=== PATIENT | male | born 1940 | race Caucasian/White ===

== ENCOUNTER 2021-06-12 15:50 | Inpatient (IN) | payer OTHER ==
[~2021-06-12] VITALS: Ht 177.8 cm; Wt 136.1 kg
--- NOTE | 2021-06-12 15:50 | NUR ---
CHRISTA COLLIER ALS AND PLACED IN BED 1.
[2021-06-12 15:59] VITALS: BP 118/51
[2021-06-12] MEDS ORDERED: cefTRIAXone 1,000 MG in DEXT 5% MINI-BAG PLUS 50 ML IV ONE (16:15)
--- NOTE | 2021-06-12 16:20 | NUR ---
80/M biba from home with c/o weakness. Per EMS patient was feeling weak at home stating "he felt his knees were going to give out," EMS states this is the third 911 call today for the same reason. Patient states he helped himself to the ground when he felt weak, denies LOC, c/o 3/10 pain to left knee and foot from previous fall today. Abrasion noted to left knee, no redness or swelling noted to left foot. Patient states he is able to ambulate with assistance for short distances at home. Patient placed in gown on bedside boiler riveter.
[2021-06-12] MEDS ORDERED: cefTRIAXone 1,000 MG VIAL ONE (16:37)
[2021-06-12 16:44] LABS: BASOPHILS # (AUTO) 0.2 K/uL (0.00-0.22); BASOPHILS % (AUTO) 1.7 % (0.0-2.0); EOSINOPHILS % (AUTO) 0.2 % (0.0-4.0); HEMATOCRIT 46.3 % (36-52); HEMOGLOBIN 15.5 g/dL (12.0-18.0); LYMPHOCYTES # (AUTO) 0.6 K/uL (2.0-11.5); LYMPHOCYTES % (AUTO) 4.2 % (20.5-51.1); MEAN CORPUSCULAR HEMOGLOBIN 28 pg (27-31); MEAN CORPUSCULAR HGB CONC 34 g/dL (33-37); MEAN CORPUSCULAR VOLUME 81.9 fL (80-94); MONOCYTES % (AUTO) 7.5 % (1.7-9.3); NEUTROPHILS # (AUTO) 11.7 K/uL (1.8-7.7); NEUTROPHILS % (AUTO) 86.4 % (42.2-75.2); PLATELET COUNT (AUTO) 132 K/uL (140-450); RED BLOOD CELL COUNT(AUTO) 5.65 MIL/uL (4.20-6.10); RED CELL DISTRIBUTION WIDTH 18.6 % (11.6-13.7); WHITE BLOOD COUNT (AUTO) 13.5 K/uL (4.8-10.8)
[2021-06-12] MEDS ORDERED: NACL 0.9% 1,000 ML IV ONE ×2 (17:10→17:30)
--- NOTE | 2021-06-12 18:00 | NUR ---
Patient resting in bed, provided water, on bedside call manager. All needs met at this time.
[2021-06-12 18:32] LABS: APPEARANCE,URINE CLEAR (CLEAR); BILIRUBIN,URINE NEGATIVE (NEGATIVE); BLOOD, URINE NEGATIVE (NEGATIVE); COLOR,URINE YELLOW (YELLOW); LEUKOCYTE ESTERASE ,URINE NEGATIVE (NEGATIVE); NITRITE, URINE NEGATIVE (NEGATIVE); UGLUCOSE NEGATIVE (NEGATIVE)
[2021-06-12] MEDS ORDERED: ACETAMINOPHEN 325 MG TAB PO PRN (18:45)
[2021-06-12] MEDS ORDERED: MORPHINE SULFATE 2 MG/ML SYR IVP PRN (18:45)
[2021-06-12] MEDS ORDERED: ZOLPIDEM 5 MG TAB PO PRN (18:45)
[2021-06-12] MEDS ORDERED: ONDANSETRON 4 MG/2 ML VIAL IVP PRN (18:45)
[2021-06-12] MEDS ORDERED: LORazepam 2 MG/ML VIAL IM/IVP PRN (18:45)
[2021-06-12] MEDS ORDERED: DOCUSATE SODIUM 100 MG GELCAP PO PRN (18:45)
[2021-06-12] MEDS: NACL 0.9% 1,000 ML IV SCH (18:58)
[2021-06-12] MEDS ORDERED: LOVENOX 1MG/KG Q12H SUBQ SCH (19:00)
--- NOTE | 2021-06-12 19:18 | NUR ---
Pt report given to Cecilia. Transfer of care at this time.
--- NOTE | 2021-06-12 19:40 | NUR ---
AWAKE AND ALERT WITH HOB ELEVATED. C/O DISCOMFORT FROM LAYING ON GURNEY, ASSISTED WITH REPOSITIONING. CM = ST WITH OCCASIONAL PVC. SKIN IS WARM AND DRY
[2021-06-12 19:43] LABS: MAGNESIUM 2.5 mg/dL (1.8-2.4); PHOSPHORUS 3.4 mg/dL (2.5-4.9)
--- NOTE | 2021-06-12 19:50 | NUR ---
REPORT CALLED TO CODY SANCHEZ
--- NOTE | 2021-06-12 19:53 | NUR ---
RECEIVED PHONE REPORT FROM ER NURSE FOR CONTINUITY OF CARE. WAITING PATIENT TO TRANSFER TO UNIT.
[2021-06-12 20:14] LABS: CHOL/HDL RATIO 3.5 (1-4.5); FREE T4 (FREE THYROXINE) 1.1 ng/dL (0.76-1.46); THYROID STIMULATING HORMONE 2.03 uIU/mL (0.34-3.74)
--- NOTE | 2021-06-12 20:20 | NUR ---
ADMITTED, TRANSFERED TO 107B VIA GURNEY ATTACHED TO ACCOMPANIED BY 2 RN'S
[2021-06-12 20:30] LABS: POTASSIUM 3.2 mmol/L (3.5-5.1); SODIUM SERUM 138 mmol/L (136-145)
[2021-06-12 20:31] LABS: ASPARTATE AMINOTRANSFERASE 53 U/L (15-37); CARBON DIOXIDE 33.2 mmol/L (21-32); CHLORIDE 94 mmol/L (98-107); CREATININE 1.2 mg/dL (0.6-1.3); GLUCOSE 167 mg/dL (74-106); TOTAL BILIRUBIN 0.6 mg/dL (0.0-1.0); UREA NITROGEN, BLOOD 59 mg/dL (7-18)
[2021-06-12 20:32] LABS: ALBUMIN 3.5 g/dL (3.4-5.0)
[2021-06-12 20:34] LABS: PROTHROMBIN TIME 11.7 secs (10.8-13.4)
--- NOTE | 2021-06-12 20:55 | NUR ---
RECEIVED CALL FROM LAB TO REPORT CRITICAL LAB VALUES LACTIC ACID 4.2, NOTIFIED DR PIPER, NO NEW ORDER, DR SERRANO.
[2021-06-12 21:30] VITALS: BP 138/55
--- NOTE | 2021-06-12 21:30 | NUR ---
RECEIVED PATIENT TRANSFER FROM ER BY MARSHA. CC FELL X3 AT HOME, GEN WEAKNESS. DX DEHYDRATION, ELEVATED TROP. PATIENT IS A/A/O X4. ON TELE MONITOR. RESPIRATORY EVEN AND UNLABORED, ON 2L OXYGEN VIA NC, O2 SAT 99%. NO SIGN OF DISTRESS NOTED. LUNG SOUND CLEAR TO AUSCULTATE. SKIN WARM, DRY, NON DIAPHORETIC. IV ON LEFT HAND 20G, INTACT AND PATENT. ABRASION NOTED ON LEFT KNEE, NO ACTIVE BLEEDING OR SIGN OF INFECTION. ABDOMEN ROUND, NON TENDER, BOWEL SOUND ACTIVE TO 4 QUADRANTS. PATIENT DENIES ANY PAIN OR DISCOMFORT. ABLE TO MAKE NEED KNOWN. PLAN OF CARE DISCUSSED, PATIENT VERBALIZED UNDERSTANDING. PRECAUTION IN PLACE. CALL LIGHT WITHIN REACH. WILL CONTINUE TO MONITOR.
[2021-06-12] MEDS: METOPROLOL 50 MG TAB PO SCH ×2 (22:38→22:43)
--- NOTE | 2021-06-12 22:45 | NUR ---
PATIENT COMPLAINS OF URGE TO URINATE BUT UNABLE, BLADDER SCAN SHOWED AROUND 500ML. TEXT DR PIPER, INSERT SNOW CATH, ULTRASOUND RENAL AND BLADDER, K DUR 40 MEQ PO X ONCE FOR POTASSIUM 3.2. WILL FOLLOW ORDER.
--- NOTE | 2021-06-12 23:00 | NUR ---
INSERT SNOW CATHETER, 1000ML URINE OUTPUT, CLEAR YELLOW. PATIENT TOLERATED WELL. NO SIGN OF DISTRESS NOTED. PRECAUTION IN PLACE. CALL LIGHT WITHIN REACH. WILL CONTINUE TO MONITOR.
[2021-06-12] MEDS ORDERED: POTASSIUM CHLORIDE 10 MEQ TABER PO SCH (23:05)
[2021-06-12] MEDS ORDERED: PIPERACILLIN/TAZOBACTAM 3.375 GM VIAL IV ONE (23:36)
[2021-06-12] MEDS: PIPERACILLIN/TAZOBACTAM 3.375 GM in DEXTROSE 5% 50 ML IV SCH (23:44)
--- NOTE | 2021-06-12 23:44 | NUR ---
SCHEDULE MEDICATIONS GIVEN WITH EDUCATION. PATIENT VERBALIZED UNDERSTANDING. PATIENT TOLERATED WELL. PRECAUTION IN PLACE. CALL LIGHT WITHIN REACH. WILL CONTINUE TO MONITOR.
[2021-06-13] VITALS: BP 118/51
--- NOTE | 2021-06-13 02:00 | NUR ---
PATIENT IS AWAKE, RESTING IN BED, NO SIGN OF RESPIRATORY DISTRESS NOTED. PRECAUTION IN PLACE. CALL LIGHT WITHIN REACH. WILL CONTINUE TO MONITOR.
[2021-06-13 04:00] VITALS: BP 114/50
--- NOTE | 2021-06-13 04:00 | NUR ---
PATIENT IS AWAKE, RESTING IN BED, NO SIGN OF DISTRESS NOTED. PRECAUTION IN PLACE. CALL LIGHT WITHIN REACH. WILL CONTINUE TO MONITOR.
[2021-06-13] MEDS ORDERED: PIPERACILLIN/TAZOBACTAM 3.375 GM VIAL IV ONE (04:23)
[2021-06-13] MEDS: PIPERACILLIN/TAZOBACTAM 3.375 GM in DEXTROSE 5% 50 ML IV SCH ×2 (04:33→13:00)
--- NOTE | 2021-06-13 04:33 | NUR ---
SCHEDULE MEDICATION GIVEN WITH EDUCATION. PATIENT VERBALIZED UNDERSTANDING. NO SIGN OF DISTRESS NOTED. PRECAUTION IN PLACE. CALL LIGHT WITHIN REACH. WILL CONTINUE TO MONITOR.
--- NOTE | 2021-06-13 04:40 | NUR ---
ASSESSMENT COMPLETED AND PT ASKED TO ME COME BACK AT A LATER TIME FOR EKG Addendum: 06/13/21 at 0442 by Coleman Noland Jr RT ASSESSMENT COMPLETED AND PT ASKED ME TO COME BACK AT A LATER TIME FOR EKG
[2021-06-13] MEDS: NACL 0.9% 1,000 ML IV SCH ×2 (06:30→15:18)
--- NOTE | 2021-06-13 06:59 | NUR ---
PATIENT HAS BEEN SCREENED AND CATEGORIZED MODERATE NUTRITION RISK. PATIENT WILL BE SEEN WITHIN 3-5 DAYS OF ADMISSION. 06/15/21 06/17/[address]
[2021-06-13 07:07] LABS: BASOPHILS % (AUTO) 0.2 % (0.0-2.0); EOSINOPHILS % (AUTO) 0.1 % (0.0-4.0); HEMATOCRIT 34.3 % (36-52); HEMOGLOBIN 11.6 g/dL (12.0-18.0); LYMPHOCYTES # (AUTO) 0.9 K/uL (2.0-11.5); LYMPHOCYTES % (AUTO) 8.5 % (20.5-51.1); MEAN CORPUSCULAR HEMOGLOBIN 28 pg (27-31); MEAN CORPUSCULAR HGB CONC 34 g/dL (33-37); MEAN CORPUSCULAR VOLUME 83.3 fL (80-94); MONOCYTES # (AUTO) 1.1 K/uL (0.8-1.0); MONOCYTES % (AUTO) 9.7 % (1.7-9.3); NEUTROPHILS # (AUTO) 9.1 K/uL (1.8-7.7); NEUTROPHILS % (AUTO) 81.5 % (42.2-75.2); PLATELET COUNT (AUTO) 118 K/uL (140-450); RED BLOOD CELL COUNT(AUTO) 4.11 MIL/uL (4.20-6.10); RED CELL DISTRIBUTION WIDTH 18.7 % (11.6-13.7); WHITE BLOOD COUNT (AUTO) 11.2 K/uL (4.8-10.8)
[2021-06-13 07:15] LABS: ANION GAP 10.5 (8-16); CARBON DIOXIDE 32.5 mmol/L (21-32); CHLORIDE 97 mmol/L (98-107); CREATININE 0.9 mg/dL (0.6-1.3); GLUCOSE 147 mg/dL (74-106); SODIUM SERUM 137 mmol/L (136-145); UREA NITROGEN, BLOOD 57 mg/dL (7-18)
[2021-06-13 07:21] LABS: MAGNESIUM 2.1 mg/dL (1.8-2.4); PHOSPHORUS 2.7 mg/dL (2.5-4.9)
--- NOTE | 2021-06-13 07:25 | NUR ---
ENDORSED PATIENT TO AM NURSE FOR CONTINUITY OF CARE. PATIENT IS STABLE.
--- NOTE | 2021-06-13 07:26 | NUR ---
RECEIVED REPORT FROM SAMMYING MACHINE OPERATOR NURSE. PATIENT LYING DOWN IN BED SLEEPING, AROUSABLE BY VOICE. NO DISTRESS NOTED. ON O2 2L/MIN VIA NC. IV SITE INTACT, PATENT, AND INFUSING IVF PER MD ORDERS. SKIN INTACT. PATIENT HAS GENERALIZED WEAKNESS. REVIEWED PLAN OF CARE WITH PATIENT. PATIENT VERBALIZED UNDERSTANDING. SAFETY MEASURES IN PLACE, CALL LIGHT WITHIN REACH. WILL CONTINUE TO MONITOR.
[2021-06-13 08:00] VITALS: BP 108/43
[2021-06-13] MEDS ORDERED: FERROUS SULFATE 325 MG TABEC PO SCH (08:00)
[2021-06-13] MEDS ORDERED: POTASSIUM CHLORIDE 10 MEQ TABER PO SCH ×2 (08:30→09:00)
[2021-06-13] MEDS: FINASTERIDE 5 MG TAB PO SCH (08:52)
[2021-06-13] MEDS: TAMSULOSIN 0.4 MG CAP PO SCH (08:52)
[2021-06-13] MEDS: METOPROLOL 50 MG TAB PO SCH (08:53)
--- NOTE | 2021-06-13 08:53 | NUR ---
SCHEDULED MEDICATIONS DUE GIVEN. WILL CONTINUE TO MONITOR.
[2021-06-13] MEDS ORDERED: LORATADINE 10 MG TAB PO SCH (09:00)
[2021-06-13] MEDS ORDERED: FUROSEMIDE 40 MG TAB PO SCH (09:00)
[2021-06-13] MEDS ORDERED: SPIRONOLACTONE 25 MG TAB PO SCH (09:00)
[2021-06-13 12:00] VITALS: BP 114/51
--- NOTE | 2021-06-13 15:36 | NUR ---
REVIEWED PMHX AND PULMONARY STATUS WITH DR. MANDIE GAY: HHN Q4PRN SOB/WHEEZE WITH HARRY; SUREKHA FOR MEMBER SERVICES REPRESENTATIVE TO ORDER
[2021-06-13] MEDS ORDERED: ALBUTEROL SULFATE/IPRATROPIU 3 ML SOL IH PRN (15:50)
[2021-06-13 16:00] VITALS: BP 101/51
[2021-06-13] MEDS: POTASSIUM CHL 40 MEQ/ D5-1/2NS 1,000 ML IV SCH (16:40)
[2021-06-13] MEDS ORDERED: OCTREOTIDE ACETATE 1.25 MG in NACL 0.9% 250 ML IV SCH (17:10)
[2021-06-13 17:43] LABS: BASOPHILS # (AUTO) 0.1 K/uL (0.00-0.22); BASOPHILS % (AUTO) 0.4 % (0.0-2.0); EOSINOPHILS # (AUTO) 0.1 K/uL (0-0.4); EOSINOPHILS % (AUTO) 0.9 % (0.0-4.0); HEMATOCRIT 29.8 % (36-52); LYMPHOCYTES # (AUTO) 1.3 K/uL (2.0-11.5); LYMPHOCYTES % (AUTO) 9.6 % (20.5-51.1); MEAN CORPUSCULAR HEMOGLOBIN 28 pg (27-31); MEAN CORPUSCULAR HGB CONC 34 g/dL (33-37); MEAN CORPUSCULAR VOLUME 83.8 fL (80-94); MONOCYTES # (AUTO) 1.4 K/uL (0.8-1.0); NEUTROPHILS # (AUTO) 10.9 K/uL (1.8-7.7); NEUTROPHILS % (AUTO) 79.1 % (42.2-75.2); PLATELET COUNT (AUTO) 144 K/uL (140-450); RED BLOOD CELL COUNT(AUTO) 3.55 MIL/uL (4.20-6.10); WHITE BLOOD COUNT (AUTO) 13.8 K/uL (4.8-10.8)
[2021-06-13] MEDS: LACTULOSE 20 GM/30 ML UDC PO SCH ×2 (17:53→21:20)
--- NOTE | 2021-06-13 17:59 | NUR ---
SCHEDULED MEDICATIONS DUE GIVEN. WILL CONTINUE TO MONITOR.
[2021-06-13] MEDS: OCTREOTIDE ACETATE 1.25 MG in NACL 0.9% 250 ML IV SCH (18:36)
--- NOTE | 2021-06-13 18:47 | NUR ---
SCHEDULED MEDICATIONS DUE GIVEN. WILL CONTINUE TO MONITOR.
[2021-06-13] MEDS: SENNA 8.6 MG TAB PO SCH (18:50)
--- NOTE | 2021-06-13 19:27 | NUR ---
GAVE REPORT TO POLYMER CHEMIST NURSE FOR CONTINUITY OF CARE. PATIENT IN STABLE CONDITION.
--- NOTE | 2021-06-13 19:30 | NUR ---
RECEIVED REPORT FROM RN DAYSHIFT NURSE AT BEDSIDE FOR CONTINUITY OF CARE, PT IN STABLE CONDITION. HE IS LYING IN BED HOB UP 45% HE IS ON 2 LITERS O2 VIA N/C. HE HAS 2 IV SITES LEFT HAND 20GUAGE RUNNING D5 1/2 NS WITH 40KCL AT 80MLS/HR AND A LEFT F/A 22G RUNNING SANDOSTATIN AT 10MLS/HR. HE IS RESTING WITH EYES CLOSED BUT AROUSABLE TO NAME AND LIGHT SHAKING. ALL FALLS PRECAUTIONS PROTOCOL IN PLACE.
[2021-06-13 20:00] VITALS: BP 107/51
--- NOTE | 2021-06-13 20:15 | NUR ---
PT LYING IN BED AOX4 AROUSABLE TO NAME AND LIGHT TOUCH. V/S FOLLOWS: T 97.4 P 90 R 18 B/P 107/51 02 97% WITH 2 LITERS VIA N/C. NO C/O VOICED AT THIS TIME. ALL FALLS PRECAUTIONS IN PLACE.
[2021-06-13] MEDS ORDERED: SUPREP BOWEL PREP KIT 354 ML SOLN.RECON PO ONE (21:00)
[2021-06-13] MEDS: METOPROLOL 25 MG TAB PO SCH (21:00)
[2021-06-13] MEDS ORDERED: CRUSHER, PILL MC ONE (21:03)
--- NOTE | 2021-06-13 21:30 | NUR ---
PT IN BED RESTING BUT AWOKEN TO NAME. PT MADE AWARE OF ORDERED AND SCHEDULED MEDS. LOPRESSOR HELD DUE TO DECREASED B/P (107/51). PT GIVEN ORDERED LACTULOSE AND SUPER BOWEL PREP DRINK. EDUCATION REGARDING SCHEDULED MEDS PROVIDED AT BEDSIDE, PT VERBALIZED UNDERSTANDING. ALL FALLS PROTOCOL IN PLACE.
--- NOTE | 2021-06-13 22:00 | NUR ---
PT HAD LARGE LOOSE AND DARK BOWEL MOVEMENT. HE WAS TURNED, CHANGED AND REPOSITIONED IN BED. HE CONTINUES ON D5 1/2 NS WITH KCL 40MEQ AT 80MLS WELL SANDOSTATIN AT 10MLS HR IV SITES INTACT AND ASYMPTOMATIC. BOWEL PREP DRINK FINISHED ALL FALLS PRECAUTIONS IN PLACE.
--- NOTE | 2021-06-13 23:13 | NUR ---
PT HAD ANOTHER VERY LARGE AND VERY LOOSE DARK BM. HE WAS TURNED, CHANGED AND REPOSITIONED IN BED.
[2021-06-14] VITALS: BP 106/50
--- NOTE | 2021-06-14 00:30 | NUR ---
PT CHANGED AND REPOSITIONED IN BED V/S FOLLOWS: T 97.4 P 90 R 18 B/P 107/51 02 97% ON ROOM AIR. ALL FALLS PRECAUTIONS IN PLACE.
--- NOTE | 2021-06-14 01:30 | NUR ---
PT WAS TURNED, CHANGED AND REPOSITIONED IN BED. HE WAS GIVEN ORDERED SEN[place]OT FOR BOWEL PREP. STOOL IS IS STILL DARK AND VERY LOOSE.
[2021-06-14] MEDS: SENNA 8.6 MG TAB PO SCH ×3 (01:40→12:35)
[2021-06-14 02:00] LABS: HEMATOCRIT 27.3 % (36-52); HEMOGLOBIN 9.2 g/dL (12.0-18.0); MEAN CORPUSCULAR HEMOGLOBIN 28 pg (27-31); MEAN CORPUSCULAR HGB CONC 34 g/dL (33-37); MEAN CORPUSCULAR VOLUME 83.4 fL (80-94); PLATELET COUNT (AUTO) 115 K/uL (140-450); RED BLOOD CELL COUNT(AUTO) 3.28 MIL/uL (4.20-6.10); RED CELL DISTRIBUTION WIDTH 18.5 % (11.6-13.7); WHITE BLOOD COUNT (AUTO) 12.2 K/uL (4.8-10.8)
--- NOTE | 2021-06-14 02:00 | NUR ---
20 GUAGE INFILTRATED. 2 NEW IV 'S PLACED 24G ON LEFT F/A RUNNING SANDOSTATIN AND 18 GUAGE ON RIGHT AC SALINE LOCKED.
--- NOTE | 2021-06-14 02:30 | NUR ---
TYLENOL WAS GIVEN FOR C/O PAIN IN THE ABDOMEN WILL MONITOR FOR EFFECT.
[2021-06-14 04:00] VITALS: BP 132/68
[2021-06-14 04:57] LABS: LYMPHOCYTES % (MANUAL) 7 % (20-46); MONOCYTES % (MANUAL) 2 % (5-12)
[2021-06-14] MEDS: POTASSIUM CHL 40 MEQ/ D5-1/2NS 1,000 ML IV SCH ×2 (06:26→17:40)
[2021-06-14] MEDS: HYDROcodone/APAP 5/325 MG 1 TAB TAB PO PRN ×2 (06:26→16:40)
--- NOTE | 2021-06-14 06:30 | NUR ---
PT WAS TURNED, CHANGED AND REPOSITIONED IN BED. PT STILL HAS A SMALL AMOUNT OF CLEAR LIQUID BLOOD TINGED STOOL. FLUIDS RUNNING ORDERED. AND ALL ORDERED PRECAUTION SIN PLACE.
[2021-06-14 07:03] LABS: BASOPHILS % (AUTO) 0.3 % (0.0-2.0); EOSINOPHILS % (AUTO) 0.3 % (0.0-4.0); HEMATOCRIT 24.8 % (36-52); HEMOGLOBIN 8.4 g/dL (12.0-18.0); LYMPHOCYTES # (AUTO) 1.1 K/uL (2.0-11.5); LYMPHOCYTES % (AUTO) 8.7 % (20.5-51.1); MEAN CORPUSCULAR HEMOGLOBIN 28 pg (27-31); MEAN CORPUSCULAR HGB CONC 34 g/dL (33-37); MEAN CORPUSCULAR VOLUME 81.9 fL (80-94); MONOCYTES # (AUTO) 1.4 K/uL (0.8-1.0); MONOCYTES % (AUTO) 11.5 % (1.7-9.3); NEUTROPHILS # (AUTO) 9.7 K/uL (1.8-7.7); NEUTROPHILS % (AUTO) 79.2 % (42.2-75.2); PLATELET COUNT (AUTO) 114 K/uL (140-450); RED BLOOD CELL COUNT(AUTO) 3.02 MIL/uL (4.20-6.10); RED CELL DISTRIBUTION WIDTH 18.7 % (11.6-13.7); WHITE BLOOD COUNT (AUTO) 12.3 K/uL (4.8-10.8)
[2021-06-14 07:04] LABS: ANION GAP 10.9 (8-16); CARBON DIOXIDE 29.3 mmol/L (21-32); CHLORIDE 98 mmol/L (98-107); CREATININE 0.9 mg/dL (0.6-1.3); GLUCOSE 179 mg/dL (74-106); POTASSIUM 3.2 mmol/L (3.5-5.1); SODIUM SERUM 135 mmol/L (136-145); UREA NITROGEN, BLOOD 36 mg/dL (7-18)
--- NOTE | 2021-06-14 07:10 | NUR ---
RECEIVED REPORT FROM FINANCING ANALYST NURSE AT BEDSIDE FOR CONTINUITY OF CARE, PT IN STABLE CONDITION, AWAKE. HE IS LYING IN BED HOB UP 45%. ON 2 LITERS O2 VIA N/C. HE HAS 2 IV SITES LEFT HAND 20G RUNNING D5 1/2 NS WITH 40KCL AT 80MLS/HR AND A LEFT F/A 22G RUNNING SANDOSTATIN AT 10MLS/HR. HE IS RESTING, NO COMPLAINTS AT THIS TIME. ALL FALLS PRECAUTIONS PROTOCOL IN PLACE. CALL LIGHT WITHIN REACH, WILL CONTINUE TO MONITOR PATIENT.
[2021-06-14 07:12] LABS: MAGNESIUM 2.1 mg/dL (1.8-2.4); PHOSPHORUS 2.4 mg/dL (2.5-4.9)
[2021-06-14 08:00] VITALS: BP 104/55
[2021-06-14] MEDS: METOPROLOL 25 MG TAB PO SCH ×2 (08:56→21:00)
[2021-06-14] MEDS: FINASTERIDE 5 MG TAB PO SCH (09:04)
[2021-06-14] MEDS: TAMSULOSIN 0.4 MG CAP PO SCH (09:04)
[2021-06-14] MEDS: LACTULOSE 20 GM/30 ML UDC PO SCH ×2 (09:04→12:35)
--- NOTE | 2021-06-14 09:08 | NUR ---
ORDERED MEDICATIONS GIVEN. PATIENT TOLERATED THEM. WILL CONTINUE TO MONITOR PATIENT.
--- NOTE | 2021-06-14 10:40 | NUR ---
PT HAD BM, DARK MAROON WITH CLOTS. PATIENT CHANGED, CLEANED. PATIENT TOLERATED IT. WILL CONTINUE TO MONITOR PATIENT.
--- NOTE | 2021-06-14 11:25 | NUR ---
DR PEREIRA CALLED THE FLOOR. UPDATED DR. PEREIRA'S WITH PT'S STATUS, MOST RECENT HGB & HCT, NPO STATUS. NEW ORDERS IN. DR PEREIRA STATED HE WILL CALL RIGGING UP MAN TO GET PATIENT READY FOR PROCEDURE. UPDATED PATIENT WITH THIS INFO, HE VERBALIZED UNDERSTANDING. WILL CONTINUE TO MONITOR PATIENT.
[2021-06-14] MEDS: OCTREOTIDE ACETATE 1.25 MG in NACL 0.9% 250 ML IV SCH ×2 (11:40→17:33)
[2021-06-14 12:00] VITALS: BP 127/50
[2021-06-14 12:10] LABS: BASOPHILS % (AUTO) 0.2 % (0.0-2.0); EOSINOPHILS % (AUTO) 0.4 % (0.0-4.0); HEMATOCRIT 22.9 % (36-52); HEMOGLOBIN 7.6 g/dL (12.0-18.0); LYMPHOCYTES # (AUTO) 0.9 K/uL (2.0-11.5); LYMPHOCYTES % (AUTO) 7.6 % (20.5-51.1); MEAN CORPUSCULAR HEMOGLOBIN 28 pg (27-31); MEAN CORPUSCULAR HGB CONC 33 g/dL (33-37); MEAN CORPUSCULAR VOLUME 83.4 fL (80-94); MONOCYTES # (AUTO) 1.2 K/uL (0.8-1.0); MONOCYTES % (AUTO) 10.8 % (1.7-9.3); NEUTROPHILS # (AUTO) 9.1 K/uL (1.8-7.7); PLATELET COUNT (AUTO) 109 K/uL (140-450); RED BLOOD CELL COUNT(AUTO) 2.74 MIL/uL (4.20-6.10); WHITE BLOOD COUNT (AUTO) 11.2 K/uL (4.8-10.8)
--- NOTE | 2021-06-14 12:41 | NUR ---
Ordered medications given. Patient tolerated them. All needs met at this time. Call light within reach, will continue to monitor patient.
[2021-06-14] MEDS ORDERED: KCL 20 MEQ/WATER INJ PREMIX 200 ML IV SCH (13:00)
--- NOTE | 2021-06-14 13:25 | NUR ---
PATIENT TAKEN OFF FLOOR TO GO TO PROCEDURES WITH DR. PEREIRA. Addendum: 06/14/21 at 1432 by Luan Cullen RN WRONG TIME, CORRECT TIME 1402.
--- NOTE | 2021-06-14 14:00 | NUR ---
One time dose of K-Dick 40MEQ not given. Patient taken off floor for procedure with Dr. Lake. Will administer when he comes back.
--- NOTE | 2021-06-14 14:05 | NUR ---
PATIENT HAD MODERATE BM, TARRY. PT CLEANED UP. WILL CONTINUE TO MONITOR PATIENT.
[2021-06-14] MEDS ORDERED: fentaNYL citrate 0.05 MG/ML VIAL ONE (14:28)
[2021-06-14] MEDS ORDERED: MIDAZOLAM 5 MG/5 ML VIAL ONE ×2 (14:29)
[2021-06-14] MEDS ORDERED: LIDOCAINE 2% 100 MG/5 ML UJET TP ONE (14:29)
[2021-06-14] MEDS: MIDAZOLAM 5 MG/5 ML VIAL IV SCH ×2 (14:32→16:50)
[2021-06-14] MEDS: fentaNYL citrate 0.05 MG/ML VIAL IVP SCH ×2 (14:35→16:50)
--- NOTE | 2021-06-14 15:46 | NUR ---
PER DR. KAMINSKI PATIENT NEED TO TRANSFER TO [facility] DUE TO BLEEDING. NOTIFIED JOSE ANGEL MENCHACASEROLOGY TECHNICIAN. PATIENT WILL GET BLOOD TRANSFUSION 2 UNITS PRBC AND CHECK H&H AGAIN.
[2021-06-14 16:10] VITALS: BP 96/56
--- NOTE | 2021-06-14 16:40 | NUR ---
1 UNIT OF BLOOD STARTED ORDERED. PATIENT TOLERATING IT, MONITORING PT CAREFULLY. KIMAYSE SESAY CALLED, UPDATED HER ABOUT PT AND PLAN OF CARE ABOUT TRANSFER TO [facility]. WILL CONTINUE TO MONITOR PATIENT.
[2021-06-14] MEDS: PIPERACILLIN/TAZOBACTAM 3.375 GM in DEXTROSE 5% 50 ML IV SCH (18:45)
[2021-06-14] MEDS ORDERED: PIPERACILLIN/TAZOBACTAM 3.375 GM VIAL IV ONE (18:49)
--- NOTE | 2021-06-14 19:25 | NUR ---
REPORT GIVEN TO AMBULANCE MECHANIC NURSE AT BEDSIDE FOR CONTINUITY OF CARE.
--- NOTE | 2021-06-14 19:30 | NUR ---
RECEIVED REPORT FROM YAO RN DAYSHIFT NURSE AT BEDSIDE FOR CONTINUITY OF CARE, PT IN STABLE CONDITION. PT RESTING NI BED, BUT ALERT TO NAME AND LIGHT TOUCH. HOB UP 45% HE SAID HE IS FEELING BETTER/OK AT THIS TIME. , HE HAS 2 LITERS 02 VIA N/C. HE IS RUNNING O POSITIVE BLOOD VIA 18G ON RIGHT F/A. HE ALSO HAS 2 OTHER IV SITES L WRIST 24 GUAGE RUNNING SANDOSTATIN AT 20MLS/HR AND LEFT F/A 22 GUAGE RUNNING D51/2 NS AT 80 MLS/HR. ALL FALLS PRECAUTIONS IN PLACE.
--- NOTE | 2021-06-14 19:45 | NUR ---
POSITIVE O UNIT OF BLOOD IS FINISHED, NO REACTION NOTED. POST TRANSFUSION V/S FOLLOWS: T 97 P 79 R 20 B/P 108/42 02 97% WITH 2 LITERS VIA N/C.
[2021-06-14 20:00] VITALS: BP 108/42
--- NOTE | 2021-06-14 20:13 | NUR ---
PT RESTING/SLEEPING COMFORTABLY ON 2LNC W/ NO DISTRESS NOTED WILL CONTINUE TO MONITOR. HR 78 SPO2 96%
--- NOTE | 2021-06-14 20:58 | NUR ---
Called [facility] transfer center ([phone]), spoke with Hugh, stated that tele is at full capacity
--- NOTE | 2021-06-14 21:02 | NUR ---
Called [facility] transfer center ([phone]), spoke with Kylah, stated no bed
--- NOTE | 2021-06-14 21:04 | NUR ---
Called [facility] transfer center ([phone]), spoke with Jayde, stated tele is full capacity. Accepted fax, faxed all information to [phone]
--- NOTE | 2021-06-14 21:10 | NUR ---
Called [facility] transfer center ([phone]), spoke with Rhianna, stated to fax all the information to [phone]
--- NOTE | 2021-06-14 21:15 | NUR ---
SPOKE WITH DANA PARK TO HOLD LOPRESSOR DUE TO LOW BLOOD PRESSURE. ALSO MADE AWARE THAT PT HEART RHYTHM IS IN A FIB. ORDERED CBC AT 0000 AND A ROUTINE EKG. ALSO OK TO ORDER 40 MEQ DUE TO LOW POTASSIUM.
--- NOTE | 2021-06-14 22:00 | NUR ---
PT WAS TURNED, CHANGED AND REPOSITIONED IN BED HE HAD A SMALL TO MODERATE BLOODY STOOL STOOL.
--- NOTE | 2021-06-14 22:50 | NUR ---
2 ND UNIT OF BLOOD STARTED PER V/S FOLLOWSl : T 97.1 P 82 R 20 B/P 105/52 02 99% ON 2 LITERS VIA N/C.
[2021-06-14] MEDS ORDERED: POTASSIUM CHLORIDE 10 MEQ TABER PO SCH (23:00)
--- NOTE | 2021-06-14 23:10 | NUR ---
2ND UNIT OF BLOOD RUNNING FOR 15 MINUTES NO REACTION AT THIS TIME V/S FOLLOWS: T 97.1 P 74 R 20 B/P 113/58 02 100%.
--- NOTE | 2021-06-14 23:25 | NUR ---
BLOOD TRANSFUSION CONTINUES NO REACTION NOTED V/S FOLLOWS: T 98.1 P 68 R 29 B/P 114/66 02 100% ON 2 LITERS VIA N/C. PT WAS TURNED, CHANGED AND REPOSITIONED IN BED HE HAD 1 SOFT MODERATE BLOODY STOOL. PT HAS NO C/O VOICED. ALL REQUESTED NEEDS ATTENDED BY STAFF.
[2021-06-15] VITALS: BP 114/66
[2021-06-15 00:17] LABS: BASOPHILS % (AUTO) 0.3 % (0.0-2.0); EOSINOPHILS # (AUTO) 0.1 K/uL (0-0.4); EOSINOPHILS % (AUTO) 0.8 % (0.0-4.0); HEMOGLOBIN 8.1 g/dL (12.0-18.0); LYMPHOCYTES # (AUTO) 0.9 K/uL (2.0-11.5); LYMPHOCYTES % (AUTO) 7.4 % (20.5-51.1); MEAN CORPUSCULAR HEMOGLOBIN 29 pg (27-31); MEAN CORPUSCULAR HGB CONC 34 g/dL (33-37); MEAN CORPUSCULAR VOLUME 85.6 fL (80-94); MONOCYTES # (AUTO) 1.4 K/uL (0.8-1.0); MONOCYTES % (AUTO) 11.8 % (1.7-9.3); NEUTROPHILS # (AUTO) 9.2 K/uL (1.8-7.7); NEUTROPHILS % (AUTO) 79.7 % (42.2-75.2); PLATELET COUNT (AUTO) 95 K/uL (140-450); RED CELL DISTRIBUTION WIDTH 17.6 % (11.6-13.7); WHITE BLOOD COUNT (AUTO) 11.5 K/uL (4.8-10.8)
[2021-06-15] MEDS ORDERED: PIPERACILLIN/TAZOBACTAM 3.375 GM VIAL IV ONE ×2 (00:43→05:12)
[2021-06-15] MEDS: HYDROcodone/APAP 5/325 MG 1 TAB TAB PO PRN ×2 (00:56→21:57)
[2021-06-15] MEDS: PIPERACILLIN/TAZOBACTAM 3.375 GM in DEXTROSE 5% 50 ML IV SCH ×2 (00:58→05:25)
--- NOTE | 2021-06-15 01:00 | NUR ---
BLOOD TRANSFUSION IN PROGRESS NO ADVERSE REACTION NOTED. V/S FOLLOWS: T 97.0 P 77 R 20 B/P 122/51 02 99% ON 2 LITERS VIA N/C. PT ALSO GIVEN ORDERED K DUR 40 MEQ FOR LOW POTASSIUM. PT C/O OF MODERATE PAIN IN ABDOMEN AND WAS GIVEN REQUESTED NORCO.
--- NOTE | 2021-06-15 01:30 | NUR ---
Called [facility] transfer center ([phone]), spoke with Jayde, stated that she received the fax, and she stated that the case will be evaluated in am
--- NOTE | 2021-06-15 03:00 | NUR ---
Fax for [facility] completed; called Rhianna, stated that she received the fax, and she stated that she will present the case in am
[2021-06-15 04:00] VITALS: BP 124/62
[2021-06-15] MEDS: POTASSIUM CHL 40 MEQ/ D5-1/2NS 1,000 ML IV SCH ×3 (05:26→21:53)
--- NOTE | 2021-06-15 06:00 | NUR ---
PT TURNED, CHANGED AND REPOSITIONED IN BED, ZOSYN HUNG AND RUNNING ORDERED EKG DONE AT BEDSIDE.
[2021-06-15] MEDS: OCTREOTIDE ACETATE 1.25 MG in NACL 0.9% 250 ML IV SCH (06:34)
--- NOTE | 2021-06-15 07:00 | NUR ---
3RD UNIT OF BLOOD HANGING AND RUNNING AT 120MLS/JHR NO ADVERSE REACTION NOTED. 22G ON LEFT HAND INFILTRATED. BLOOD PRODUCT RUNNING OFF 18G ON R F/A. WILL ENDORSE TO AM SHIFT TO COMPLETE TRANSFUSION.
--- NOTE | 2021-06-15 07:15 | NUR ---
RECEIVED REPORT FROM REGIONAL ADMINISTRATIVE ASSISTANT NURSE. PATIENT LYING DOWN IN BED WITH 3RD UNIT OF PRBC INFUSING, NO REACTIONS NOTED. ON ROOM AIR, IV SITES INTACT, PATENT, AND INFUSING IVF PER MD ORDERS. SNOW CATHETER IN PLACE. REVIEWED PLAN OF CARE WITH PATIENT. PATIENT VERBALIZED UNDERSTANDING. SAFETY MEASURES IN PLACE, CALL LIGHT WITHIN REACH. WILL CONTINUE TO MONITOR.
[2021-06-15 08:00] VITALS: BP 124/57
--- NOTE | 2021-06-15 08:05 | NUR ---
ASLEEP EASILY AWAKENS VERBALLY RESPONSIVE TO PNEUMATIC JACK OPERATOR RECEIVED ON HUMIDIFIED SUPPLEMENTAL OXYGEN AT 2 LPM VIA NC PATIENT ASSESSMENT DONE NO EVIDENCE OF RESPIRATORY DISTRESS NOTED GOOD CHEST RISE AND AERATION THROUGHOUT BILATERAL LUNG [place] AIRWAY PATENT PATIENT DENIES SOB AT THIS TIME
[2021-06-15] MEDS: TAMSULOSIN 0.4 MG CAP PO SCH (08:14)
[2021-06-15] MEDS: FINASTERIDE 5 MG TAB PO SCH (08:15)
[2021-06-15] MEDS: METOPROLOL 25 MG TAB PO SCH ×2 (08:16→21:52)
--- NOTE | 2021-06-15 08:22 | NUR ---
SCHEDULED MEDICATIONS DUE GIVEN. WILL CONTINUE TO MONITOR.
[2021-06-15 10:26] LABS: BASOPHILS % (AUTO) 0.2 % (0.0-2.0); EOSINOPHILS # (AUTO) 0.1 K/uL (0-0.4); EOSINOPHILS % (AUTO) 1.9 % (0.0-4.0); HEMATOCRIT 24.1 % (36-52); HEMOGLOBIN 8.2 g/dL (12.0-18.0); LYMPHOCYTES # (AUTO) 0.5 K/uL (2.0-11.5); LYMPHOCYTES % (AUTO) 7.7 % (20.5-51.1); MEAN CORPUSCULAR HEMOGLOBIN 30 pg (27-31); MEAN CORPUSCULAR HGB CONC 34 g/dL (33-37); MEAN CORPUSCULAR VOLUME 86.8 fL (80-94); MONOCYTES # (AUTO) 0.8 K/uL (0.8-1.0); MONOCYTES % (AUTO) 10.8 % (1.7-9.3); NEUTROPHILS # (AUTO) 5.6 K/uL (1.8-7.7); NEUTROPHILS % (AUTO) 79.4 % (42.2-75.2); PLATELET COUNT (AUTO) 78 K/uL (140-450); RED BLOOD CELL COUNT(AUTO) 2.78 MIL/uL (4.20-6.10); RED CELL DISTRIBUTION WIDTH 17.1 % (11.6-13.7)
[2021-06-15 10:46] LABS: ANION GAP 8.5 (8-16); CARBON DIOXIDE 29.2 mmol/L (21-32); CHLORIDE 98 mmol/L (98-107); CREATININE 0.8 mg/dL (0.6-1.3); GLUCOSE 180 mg/dL (74-106); POTASSIUM 3.7 mmol/L (3.5-5.1); SODIUM SERUM 132 mmol/L (136-145); UREA NITROGEN, BLOOD 18 mg/dL (7-18)
[2021-06-15 10:49] LABS: PHOSPHORUS 1.5 mg/dL (2.5-4.9)
--- NOTE | 2021-06-15 11:30 | NUR ---
PICC NURSE AT BEDSIDE. WILL CONTINUE TO MONITOR.
[2021-06-15 12:00] VITALS: BP 121/65
--- NOTE | 2021-06-15 14:00 | NUR ---
PATIENT LYING DOWN IN BED WATCHING TV. NO DISTRESS NOTED. CONDITION UNCHANGED. WILL CONTINUE TO MONITOR.
[2021-06-15 16:00] VITALS: BP 111/51
[2021-06-15] MEDS: FERROUS SULFATE 325 MG TABEC PO SCH (17:27)
--- NOTE | 2021-06-15 17:27 | NUR ---
SCHEDULED MEDICATIONS DUE GIVEN. WILL CONTINUE TO MONITOR.
[2021-06-15 18:48] LABS: BASOPHILS % (AUTO) 0.3 % (0.0-2.0); EOSINOPHILS # (AUTO) 0.1 K/uL (0-0.4); EOSINOPHILS % (AUTO) 1.7 % (0.0-4.0); HEMATOCRIT 24.3 % (36-52); HEMOGLOBIN 8.2 g/dL (12.0-18.0); LYMPHOCYTES # (AUTO) 0.6 K/uL (2.0-11.5); MEAN CORPUSCULAR HEMOGLOBIN 29 pg (27-31); MEAN CORPUSCULAR HGB CONC 34 g/dL (33-37); MONOCYTES # (AUTO) 0.8 K/uL (0.8-1.0); MONOCYTES % (AUTO) 9.5 % (1.7-9.3); NEUTROPHILS # (AUTO) 6.4 K/uL (1.8-7.7); NEUTROPHILS % (AUTO) 80.5 % (42.2-75.2); PLATELET COUNT (AUTO) 85 K/uL (140-450); RED CELL DISTRIBUTION WIDTH 16.4 % (11.6-13.7)
--- NOTE | 2021-06-15 19:30 | NUR ---
RECEIVED REPORT FROM ZOHAIB ROSS DAYSHIFT NURSE AT BEDSIDE FOR CONTINUITY OF CARE, PT IN STABLE CONDITION. PT LYING IN BED HOB UP 45% HE IS ON 2 LITERS VIA N/C. HE HAS A NEWLY INSERTED LEFT UPPER ARM DOUBLE LUMEN MIDLINE. WHICH IS RUNNING D5 1/2 NS WITH 40MEQ KCL AT 80 MLS/HR. PT HAS NO C/O VOICED AT THIS TIME. ALL FALLS PRECAUTIONS IN PLACE.
--- NOTE | 2021-06-15 19:34 | NUR ---
GAVE REPORT TO MENTAL HEALTH DIRECTOR NURSE FOR CONTINUITY OF CARE. PATIENT IN STABLE CONDITION.
[2021-06-15 20:00] VITALS: BP 139/54
--- NOTE | 2021-06-15 20:00 | NUR ---
PT IN BED V/S FOLLOWS: T 97.8 P 69 R 18 B/P 139/54 02 96% ON 2 LITERS VIA N/C. IV FLUID RUNNING ORDERED.
--- NOTE | 2021-06-15 20:33 | NUR ---
PT SLEEPING COMFORTABLY IN SEMI-FOWLERS ON 2LNC W/ NO DISTRESS NOTED AT THIS TIME WILL CONTINUE TO MONITOR
--- NOTE | 2021-06-15 22:00 | NUR ---
PT WAS GIVEN 1/2 TAB SCHEDULED LOPRESSOR WELL REQUESTED NORCO FOR MODERATE HEADACHE. FLUID BAG REPLACED AND PT GIVEN CHICKEN AND BEEF BROTH REQUESTED. ALL FALLS PRECAUTIONS IN PLACE.
--- NOTE | 2021-06-15 23:47 | NUR ---
RECEIVED A CALL FROM RIGOBERTO FROM [facility] REGARDING INQUIRY FOR POSSIBLE ADMISSION. SPOKE BRIEFLY REGARDING PT CONDITION.
[2021-06-16] VITALS: BP 103/42
--- NOTE | 2021-06-16 00:10 | NUR ---
PT IN BED RESTING WITH EYES CLOSED, BUT AROUSABLE TO NAME V/S FOLLOWS: T 97.2 P 54 R 18 B/P 103/42 02 97% ON 2 LITERS VIA N/C.
[2021-06-16 00:22] LABS: BASOPHILS % (AUTO) 0.2 % (0.0-2.0); EOSINOPHILS # (AUTO) 0.1 K/uL (0-0.4); EOSINOPHILS % (AUTO) 1.7 % (0.0-4.0); HEMATOCRIT 24.1 % (36-52); HEMOGLOBIN 8.1 g/dL (12.0-18.0); LYMPHOCYTES # (AUTO) 0.5 K/uL (2.0-11.5); LYMPHOCYTES % (AUTO) 7.7 % (20.5-51.1); MEAN CORPUSCULAR HEMOGLOBIN 30 pg (27-31); MEAN CORPUSCULAR HGB CONC 34 g/dL (33-37); MEAN CORPUSCULAR VOLUME 87.7 fL (80-94); MONOCYTES # (AUTO) 0.7 K/uL (0.8-1.0); MONOCYTES % (AUTO) 9.9 % (1.7-9.3); NEUTROPHILS # (AUTO) 5.7 K/uL (1.8-7.7); NEUTROPHILS % (AUTO) 80.5 % (42.2-75.2); PLATELET COUNT (AUTO) 79 K/uL (140-450); RED BLOOD CELL COUNT(AUTO) 2.75 MIL/uL (4.20-6.10); RED CELL DISTRIBUTION WIDTH 16.8 % (11.6-13.7); WHITE BLOOD COUNT (AUTO) 7.1 K/uL (4.8-10.8)
--- NOTE | 2021-06-16 01:00 | NUR ---
UP DATE ACCORDING TO RAYRAY MENCHACAWEB CONTENT EXECUTIVE, [facility] ACCEPTED PT , BUT AWAITING A BED.
--- NOTE | 2021-06-16 02:00 | NUR ---
RIGOBERTO CALLED BACK FORM [facility] NO BED AVAILABLE AT THIS TIME.
--- NOTE | 2021-06-16 02:30 | NUR ---
PT ASLEEP IN BED FLUIDS RUNNING ORDERED, 02 VIA N/C IN PLACE ALL ORDERED PRECAUTIONS IN PLACE.
[2021-06-16 04:00] VITALS: BP 97/40
[2021-06-16] MEDS: HYDROcodone/APAP 5/325 MG 1 TAB TAB PO PRN (06:43)
[2021-06-16 07:10] LABS: BASOPHILS % (AUTO) 0.4 % (0.0-2.0); EOSINOPHILS # (AUTO) 0.1 K/uL (0-0.4); EOSINOPHILS % (AUTO) 1.7 % (0.0-4.0); HEMATOCRIT 22.2 % (36-52); HEMOGLOBIN 7.5 g/dL (12.0-18.0); LYMPHOCYTES # (AUTO) 0.6 K/uL (2.0-11.5); LYMPHOCYTES % (AUTO) 8.7 % (20.5-51.1); MEAN CORPUSCULAR HEMOGLOBIN 30 pg (27-31); MEAN CORPUSCULAR HGB CONC 34 g/dL (33-37); MEAN CORPUSCULAR VOLUME 87.1 fL (80-94); MONOCYTES # (AUTO) 0.7 K/uL (0.8-1.0); MONOCYTES % (AUTO) 10.6 % (1.7-9.3); NEUTROPHILS # (AUTO) 5.2 K/uL (1.8-7.7); NEUTROPHILS % (AUTO) 78.6 % (42.2-75.2); PLATELET COUNT (AUTO) 78 K/uL (140-450); RED BLOOD CELL COUNT(AUTO) 2.55 MIL/uL (4.20-6.10); WHITE BLOOD COUNT (AUTO) 6.6 K/uL (4.8-10.8)
[2021-06-16 07:34] LABS: ANION GAP 1.7 (8-16); CARBON DIOXIDE 31.1 mmol/L (21-32); CHLORIDE 102 mmol/L (98-107); CREATININE 0.6 mg/dL (0.6-1.3); GLUCOSE 145 mg/dL (74-106); POTASSIUM 3.8 mmol/L (3.5-5.1); SODIUM SERUM 131 mmol/L (136-145); UREA NITROGEN, BLOOD 12 mg/dL (7-18)
--- NOTE | 2021-06-16 07:40 | NUR ---
RECEIVED BEDSIDE REPORT FROM FLEA MARKET SELLER NURSE. PATIENT AWAKE, LAYING IN BED SUPINE. ALERT, ANSWERS TO NAME, ABLE TO MAKE NEEDS KNOWN. BREATHING EVEN AND UNLABORED, NO SIGNS OF ACUTE DISTRESS NOTED ON 2L NC. ARLENE MIDLINE RUNNING D5 1/2NS @ 40 ML/HR. SAFETY MEASURES IN PLACE.
[2021-06-16 08:00] VITALS: BP 101/42
[2021-06-16] MEDS: FINASTERIDE 5 MG TAB PO SCH (08:42)
[2021-06-16] MEDS: TAMSULOSIN 0.4 MG CAP PO SCH (08:42)
[2021-06-16] MEDS: FERROUS SULFATE 325 MG TABEC PO SCH (08:42)
--- NOTE | 2021-06-16 08:42 | NUR ---
ADMINISTERED SCHEDULED MEDS PER MD ORDER. MED EDUCATION PROVIDED, PATIENT VERBALIZES UNDERSTANDING. AM BP MED HELD DUE TO LOW BP: 101/42, HR 60.
[2021-06-16] MEDS: METOPROLOL 25 MG TAB PO SCH (08:50)
[2021-06-16] MEDS ORDERED: metOLazone 5 MG TAB PO SCH (09:00)
--- NOTE | 2021-06-16 10:13 | NUR ---
DC PLANNING: CALLED [facility] TRANSFER [facility] [phone] STATED PT WILL BE GOING TO [facility] [phone] SPOKE WITH MELANIE STATED THEY DON'T HAVE A BED AT THIS TIME WILL HAVE SOME DISCHARGE IN THE AFTERNOON AND CALL BACK. CM TO FOLLOW Addendum: 06/16/21 at 1119 by Anila Marin RN DC PLANNING: RECEIVED A CALL FROM [facility] [phone] SPOKE WITH ROMY [place] ACCEPTED PATIENT, NEEDS AUTH FROM [facility] AND REQUESTED THE RETURN AGREEMENT TO BE SIGNED. CALLED [facility] CHELI LEFT A MESSAGE CM TO FOLLOW. Addendum: 06/16/21 at 1214 by Anila Marin RN DC PLANNING: [facility] SPOKE WITH CHELI STATED SHE IS NOT AWARE OF REGARDING THE TRANSFER NO NOTES FROM THE [facility] AND SHE HAS TO DISCUSS IT WITH HER GREENSKEEPER HEAD. I INFORMED HER THAT [employer] WAS WORKING ON IT ON THE CASE AND PROVIDE THE AUTH NUMBER AND [facility] IS ACCEPTING PT AND AWAITING FOR BED NUMBER AND [facility] ALSO ACCEPTED AND NEEDS AUTH #, PER CHELI REQUESTED THE PAPER WORK TO BE FAXED AND WILL DISCUSS WITH HER MD AND CALL BACK. CM TO FOLLOW Addendum: 06/16/21 at 1257 by Anila Marin RN DC PLANNING: RECEIVED A CALL FROM [facility] SPOKE WITH CHELI STATED HER GREENSKEEPER HEAD AGREED WITH TRANSFER AND IT HAS TO BE [facility]. [facility] IS NOT AUTHORIZING [facility] OR [facility]. I SPOKE WITH PATIENT AND PT STATED HE WAS AT [facility] SO MANY TIMES AND THEY ARE UNABLE TO PERFORM THE PROCEDURE AND HAS APPOINTMENT AT [place]. PER PATIENT IF THEY DON'T AUTHORIZE THE TRANSFER HE WILL SIGN AMA. NOTIFIED CHELI AT [facility] AND DR GORDY CM TO FOLLOW. Addendum: 06/16/21 at 1358 by Anila Marin RN DC PLANNING: RECEIVED A CALL FROM [facility] GAME TECHNICIAN SPOKE WITH IRIS STATED ACCEPTED PATIENT HOWEVER REQUESTING IF PT IS WILLING TOCOM TO [facility]. SPOKE WITH PATIENT AND HIS NIECE STATED DON'T WANT TO GO TO [facility] AND WILL SIGNED AMA AND GO TO [facility]. NOTIFIED JACQUI AT [facility], DR KAMINSKI AND CHELI NUNEZ.
--- NOTE | 2021-06-16 11:05 | NUR ---
RECEIVED CALL FROM ROMY FROM [facility]SFER [facility]. PER ROMY, THEY ARE AWAITING INSURANCE APPROVAL IN ORDER TO BEGIN PATIENT TRANSFER. ROMY WAS UPDATED ON PATIENT CONDITION AND TRANSFERRED TO OUR CASE MANAGEMENT HERE AT [facility].
--- NOTE | 2021-06-16 11:31 | NUR ---
PATIENT FAMILY (NIECE) AT BEDSIDE WITH PATIENT AT THIS TIME. PATIENT STABLE, YOUTH OFFICER IN ROOM OBTAINING VITAL SIGNS. BREATHING EVEN, NO SIGNS OF ACUTE DISTRESS ON 2L NC. SAFETY MEASURES IN PLACE.
[2021-06-16 12:56] LABS: BASOPHILS % (AUTO) 0.4 % (0.0-2.0); EOSINOPHILS # (AUTO) 0.1 K/uL (0-0.4); EOSINOPHILS % (AUTO) 1.4 % (0.0-4.0); HEMATOCRIT 23.6 % (36-52); LYMPHOCYTES # (AUTO) 0.7 K/uL (2.0-11.5); LYMPHOCYTES % (AUTO) 9.4 % (20.5-51.1); MEAN CORPUSCULAR HEMOGLOBIN 30 pg (27-31); MEAN CORPUSCULAR HGB CONC 34 g/dL (33-37); MEAN CORPUSCULAR VOLUME 87.5 fL (80-94); MONOCYTES # (AUTO) 0.7 K/uL (0.8-1.0); NEUTROPHILS # (AUTO) 5.6 K/uL (1.8-7.7); NEUTROPHILS % (AUTO) 78.8 % (42.2-75.2); PLATELET COUNT (AUTO) 84 K/uL (140-450); RED CELL DISTRIBUTION WIDTH 17.1 % (11.6-13.7); WHITE BLOOD COUNT (AUTO) 7.1 K/uL (4.8-10.8)
--- NOTE | 2021-06-16 19:04 | NUR ---
PATIENT LEAVING AMA AT THIS TIME. PATIENT EDUCATION PROVIDED WITH INFORMATION ON RISKS OF LEAVING AMA IN CURRENT CONDITION. PATIENT FAMILY (NIECE) ARRIVED TO LAMINATION MACHINE OPERATOR PATIENT, NIECE EDUCATED ON PATIENT CONDITION AND RISKS OF LEAVING AMA. PATIENT STILL CHOOSING TO LEAVE AMA. IV LINES REMOVED, CATHETERS INTACT. PATIENT STABLE, BREATHING EVEN AND UNLABORED NO SIGNS OF ACUTE DISTRESS NOTED.
== END 2021-06-16 13:38 | disposition left against medical advice (07) | DRG 871 ==
LOC: MED 15:50 → MTU 18:44
PROVIDERS: ADMIT Family Medicine; ATTEND Family Medicine
PROC: 0DJD8ZZ Inspection of Lower Intestinal Tract, Via Natural or Artificial Opening Endoscopic (ICD-10-PCS; 2021-06-14)
PROC: 30233N1 Transfusion of Nonautologous Red Blood Cells into Peripheral Vein, Percutaneous Approach (ICD-10-PCS; principal; 2021-06-14 13:00)
PROC: 0DJ08ZZ Inspection of Upper Intestinal Tract, Via Natural or Artificial Opening Endoscopic (ICD-10-PCS; 2021-06-14 13:00)
DX: A41.9 Sepsis, unspecified organism (principal); I21.A1 Myocardial infarction type 2; K92.2 Gastrointestinal hemorrhage, unspecified; E87.2 Acidosis; Z68.41 Body mass index [BMI] 40.0-44.9, adult; I50.32 Chronic diastolic (congestive) heart failure; E87.1 Hypo-osmolality and hyponatremia; G90.9 Disorder of the autonomic nervous system, unspecified; E86.0 Dehydration; I48.0 Paroxysmal atrial fibrillation; Z53.29 Procedure and treatment not carried out because of patient's decision for other reasons; D72.829 Elevated white blood cell count, unspecified; I11.0 Hypertensive heart disease with heart failure; I44.0 Atrioventricular block, first degree; I44.7 Left bundle-branch block, unspecified; J44.9 Chronic obstructive pulmonary disease, unspecified; K74.60 Unspecified cirrhosis of liver; R29.6 Repeated falls; E66.01 Morbid (severe) obesity due to excess calories; E87.6 Hypokalemia; D64.9 Anemia, unspecified; E83.51 Hypocalcemia; E87.8 Other disorders of electrolyte and fluid balance, not elsewhere classified; R73.9 Hyperglycemia, unspecified; G47.33 Obstructive sleep apnea (adult) (pediatric); Z85.46 Personal history of malignant neoplasm of prostate; Z92.3 Personal history of irradiation; Z86.16 Personal history of COVID-19
CPT/HCPCS: 36415; 71045; 76700; 76770; 80048; 80053; 81003; 82150; 82272; 83036; 83605; 83690; 83735; 83880; 84100; 84439; 84443; 84484; 85025; 85610; 85730; 86886; 86900; 86901; 86920; 87040; 87081; 87086; 93005; 93880; 94640; 96361; 96365; 99285; J0696; J2250; J2354; J2543; J3010; J7030; J7060; P9016